=== PATIENT | female | born 1945 | race Caucasian/White ===

== ENCOUNTER → 2017-08-03 | Outpatient (CLI) | payer MEDICARE ==
[2017-08-03] MEDS: GADOBUTROL 7.5 MMOL/7.5 ML VIAL IV (11:26)
== END | disposition home or self-care (01) ==
LOC: KCIC MRI 10:32
DX: K76.89 Other specified diseases of liver (principal)
CPT/HCPCS: 74183; A9585

== ENCOUNTER → 2017-09-29 | Outpatient (CLI) | payer MEDICARE | END | disposition home or self-care (01) | LOC: US 09:38 | DX: E04.2 Nontoxic multinodular goiter (principal) | CPT/HCPCS: 76942; 88173 ==

== ENCOUNTER → 2021-03-01 | Outpatient (CLI) | payer MEDICARE, OTHER ==
[~2021-03-01] MED LIST: BENA20TA84 PO; GADOTERATE 7.5 MMOL/15ML VIAL. IVP ONE
--- NOTE | 2021-03-01 15:49 | KCIC ---
EXAMINATION: Magnetic resonance imaging (MRI) of the lumbar spine with and without contrast 1 1:30 PM HISTORY: Low back pain. TECHNIQUE: Multiplanar multi-weighted MRI of the lumbar spine was performed with and without intraven ous contrast using the standard lumbar spine protocol. Contrast information: Gadolinium based contrast. 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 There is moderate to advanced disc height loss asymmetric to the right at L2 -L3 and asymmetric to the left at L4-L5. There is minimal height loss involving the L1 vertebral body asymmetric to the right. No acute compression fracture is identified. Modic type I endplate degenera tive changes identified at L2-L3 and L4-L5. Conus medullaris terminates at L1. Distal spinal cord sig nal intensity is normal in all sequences. Disc desiccation is identified all levels of lumbar spine. Abdominal aorta is normal in caliber. Visualized sacrum is intact. Kidneys are normal in appearance. L1-L2: There is a disc bulge asymmetric to the right with far lateral disc protrusion. Mild facet art hropathy. Moderate right and mild left neuroforaminal stenosis. There is right lateral recess stenosi s. Mild spinal canal stenosis. Findings have progressed since the prior examination with increase in right-sided neuroforaminal stenosis. L2-L3: There is a posterior disc osteophyte complex. Severe right and moderate left facet arthropathy ligamentum flavum infolding. There is narrowing the right lateral recess. Severe right and mild left neuroforaminal stenosis. Findings are similar to prior examination. Moderate spinal canal stenosis. L3-L4: There is a sequential disc bulge asymmetric to the right. Moderate to severe facet arthropathy ligamentum flavum infolding. Severe left and moderate right neural foraminal stenosis. Mild to moder ate spinal canal stenosis. Findings are stable from prior examination. L4-L5: There is a circumferential disc bulge asymmetric to the left. There is a left far lateral disc osteophyte complex. Severe left and moderate facet arthropathy. Severe left and moderate right neuro foraminal stenosis. Left hemilaminectomy changes are identified with decompression the spinal canal a s compared to prior examination. No residual spinal canal stenosis. L5-S1: Disc is normal in configuration. Mild facet arthropathy. Mild left neuroforaminal stenosis. No spinal canal stenosis. Findings are stable. IMPRESSION: Left hemilaminectomy changes are identified at L4-L5 without residual spinal canal stenosis. Moderate to advanced degenerative changes of the lumbar spine are present as described in detail above. Electronically signed by: Keely Mcwilliams MD (03/01/2021 3:46 PM) [facility]
== END ==
LOC: KCIC MRI 13:00
PROVIDERS: ATTEND Physical Medicine & Rehabilitation
DX: M47.817 Spondylosis without myelopathy or radiculopathy, lumbosacral region (principal); M51.86 Other intervertebral disc disorders, lumbar region; M48.07 Spinal stenosis, lumbosacral region; M41.85 Other forms of scoliosis, thoracolumbar region
CPT/HCPCS: 72158; 82565; A9575